=== PATIENT | female | born 1985 | race Caucasian/White ===

== ENCOUNTER 2018-10-02 07:10 | Day surgery (SDC) | payer BC ==
[2018-09-30 16:22] VITALS: BMI 27.4
[2018-10-02] MEDS ORDERED: LIDOCAINE HCL 2% (20ML MULTI-DOSE VIAL) NR ONE (08:41)
[2018-10-02] MEDS ORDERED: BUPIVACAINE HCL/PF 2.5 MG/ML - 30 ML VIAL IJ ONE (08:42)
[2018-10-02 10:05] VITALS: PULSE 64; TEMP 98.4
[2018-10-02 10:09] VITALS: BP 110/67
--- NOTE | 2018-10-03 10:19 | OP ---
DATE OF OPERATION: 10/02/2018 PREOPERATIVE DIAGNOSIS: Left long finger mass. POSTOPERATIVE DIAGNOSIS: Left long finger mass. OPERATIVE PROCEDURE: Left long finger mass excision. SURGEON: Wei Agustin M.D. NUT ORCHARDIST: SARA Bear ANESTHESIA: Local. COMPLICATIONS: None. ESTIMATED BLOOD LOSS: Minimal. INDICATIONS FOR PROCEDURE: The patient is a 33-year-old female with the above finding indicated for operative treatment. The risks, benefits and alternatives were discussed with her at length and proper informed consent was obtained. PROCEDURE: After proper identification of the patient and correct operative site, patient was brought to the operating room and placed supine on the table, all prominences well-padded. Local anesthesia was given with 2% lidocaine and adequate for the procedure. The left upper extremity was prepped and draped in the usual sterile fashion. Finger tourniquet was used. The patient did have what appeared to be a pyogenic granuloma in the volar aspect of the long finger. This was ellipsed out longitudinally, including the deep tissues, and electrocautery was used to stop any bleeding and cauterize the area. Care was taken to protect neurovascular structures. No further mass was noted and the incision was repaired in a [id number] fashion with nylon sutures. Sterile dressings were applied. Patient was reversed from anesthesia. She tolerated the procedure well. Taye Alves was . WEI AGUSTIN M.D. HAMMAD/[id number]
--- NOTE | 2018-10-07 16:19 | PATH ---
Surgical Pathology Report Patient Name: DYLLAN YEPEZ [facility]. Rec. #: [id number] /Age/Gender: 1985 (Age: 33) / F Account: [id number] Location: [facility] Taken: 10/02/2018 Received: 10/02/2018 Reported: 10/07/2018 Physicians: Warren Dukes M.D. Specimen(s) Received LEFT LONG FINGER MASS Clinical History Left long finger mass Final Diagnosis LEFT LOWER FINGER, MASS, EXCISION: LOBULAR CAPILLARY HEMANGIOMA (PYOGENIC GRANULOMA). Electronically Signed Johana Dodd M.D. Gross Description Received in formalin labeled "left long finger mass," is a 1.2 x 0.4 cm christianson, elliptical, unoriented portion of skin excised to a depth of 0.3 cm. The epidermal surface displays a 0.5 x 0.3 cm christianson, crusted lesion. The base is inked green and the specimen is serially sectioned. The specimen is entirely submitted in 2 cassettes as follows: 1-undesignated tips; 2-central portion of specimen with lesion. /10/03/2018 saudi/10/03/2018
== END 2018-10-02 10:10 | disposition home or self-care (01) ==
LOC: FASU 07:10
PROVIDERS: ATTEND Orthopaedic Surgery Hand Surgery
PROC: 0JBH0ZX Excision of Left Lower Arm Subcutaneous Tissue and Fascia, Open Approach, Diagnostic (ICD-10-PCS; principal; 2018-10-02 09:16)
DX: L98.0 Pyogenic granuloma (principal)
CPT/HCPCS: 84703; 88305-TC